=== PATIENT | female | born 1940 | race Caucasian/White ===

== ENCOUNTER → 2016-05-07 | Day surgery (SDC) | payer OTHER ==
[2016-04-26 07:39] VITALS: BMI 25.0
[~2016-05-07] VITALS: Ht 165.1 cm; Wt 70.0 kg
[~2016-05-07] MED LIST: ATOR10TA88 PO; CALC500C70 PO; CHOL100010 PO; FENTANYL CITRATE INJ 50 MCG/1 ML 2 ML VIAL ONE; GLUCTAB7 PO; LIDOCAINE HCL 2% 2 ML VIAL (20MG/ML) ONE; MULT-506 PO; NAPR1TAB9 PO; OMEGCAP2 PO; PROPOFOL IV EMULSION 10 MG/ML 20 ML VIAL IV ONE; SODIUM CHLORIDE 0.9% 500ML 500 ML IV ONE
[2016-05-07 11:27] VITALS: Ht 165.1 cm; Wt 70.0 kg
--- NOTE | 2016-05-07 12:04 | Endo History and Physical ---
History & Physical Date of Service: May 07, 2016. Chief Complaint: SCREENING 5 YEAR FOLLOW UP SISTER WITH COLON CA Referring Physician: DR ESPARZA History of Present Illness 75 yo CF who presents for colonoscopy secondary to family history of colon cancer (sister). Past Surgical History Hx Cardiac Surgery: No Hx Internal Defibrillator: No Hx Pacemaker: No Hx Abdominal Surgery: No Hx of Implantable Prosthesis: No Hx Post-Op Nausea and Vomiting: No Hx Cancer Surgery: No Hx Thoracic Surgery: No Hx Orthopedic: No Hx Urinary Tract Surgery: No Family History Colon CA Social History Smoking Status: Never Smoker Hx Substance Use: No Hx Alcohol Use: Yes (OCCASSIONALLY) Allergies Coded Allergies: NO KNOWN DRUG ALLERGIES (Verified Allergy, Unknown, ., 05/07/16) Current Medications Reported Home Medications Medications Dose Route/Sig Max Daily Dose Days Date Category Vitamin D (Cholecalciferol) 1,000 Unit Tab 1 Tab PO QAM 04/26/16 Reported Multivitamin (Multivitamins) Tab 1 Tab PO QAM 04/26/16 Reported Glucosamine Chondroitin (Xtkfqtqduij-Yszztgjuicp-Ani C-) 1 Tab Tab 1 Tab PO QAM 04/26/16 Reported Fish Oil ([place]-3 Fatty Acids) 1 Cap Cap 1 Cap PO QAM 04/26/16 Reported Os-Otilio 500 Plus D (Calcium/Vitamin D) Tab 1 Tab PO QAM 04/26/16 Reported Aleve (Naproxen) 220 Mg Tab 220 Mg PO QAM 04/26/16 Reported Lipitor (Atorvastatin Calcium) 10 Mg Tab 10 Mg PO HS 04/26/16 Reported Vital Signs Weight (Kilograms): 70.00 Height (Feet): 5 Height (Inches): 5 Date Time Temp Pulse Resp B/P Pulse Ox O2 Delivery O2 Flow Rate FiO2 05/07/16 11:35 36.5 77 20 109/58 98 Room Air Physical Exam General Appearance: WD/WN, no apparent distress Respiratory/Chest: Auscultation: breath sounds normal Cardiovascular: Heart Auscultation: RRR Abdomen: Bowel Sounds: normal Inspection & Palpation: soft, non-distended, no tenderness, guarding & rebound Assessment and Plan Assessment: 75 yo CF who presents for colonoscopy secondary to family history of colon cancer (sister). Plan: Proceed with colonoscopy.
--- NOTE | 2016-05-07 12:40 | Discharge Instructions ---
Endoscopy Patient Instructions Date / Procedure(s) Performed May 07, 2016. Colonoscopy Allergy Information Coded Allergies: NO KNOWN DRUG ALLERGIES (Verified Allergy, Unknown, ., 05/07/16) Discharge Date / Findings May 07, 2016. Colon polyps Diverticulosis Internal hemorrhoids Medication Instructions Stopped Medication(s): MARTÍN OK to resume all medications today as prescribed Reported Home Medications Medications Dose Route/Sig Max Daily Dose Days Date Category Vitamin D (Cholecalciferol) 1,000 Unit Tab 1 Tab PO QAM 04/26/16 Reported Multivitamin (Multivitamins) Tab 1 Tab PO QAM 04/26/16 Reported Glucosamine Chondroitin (Kqlbuwyreve-Lgfnthskqma-Tgw C-) 1 Tab Tab 1 Tab PO QAM 04/26/16 Reported Fish Oil ([place]-3 Fatty Acids) 1 Cap Cap 1 Cap PO QAM 04/26/16 Reported Os-Otilio 500 Plus D (Calcium/Vitamin D) Tab 1 Tab PO QAM 04/26/16 Reported Aleve (Naproxen) 220 Mg Tab 220 Mg PO QAM 04/26/16 Reported Lipitor (Atorvastatin Calcium) 10 Mg Tab 10 Mg PO HS 04/26/16 Reported Provider Instructions Activity Restrictions - No exercising or heavy lifting for 24 hours. - Do not drink alcohol the day of the procedure. - Do not drive a car or operate machinery until the day after the procedure. - Do not make any important decisions or sign important papers in 24 hours after the procedure. Following Day: - Return to full activity which may include returning to work/school. Diet Start your diet with liquids and light foods (jello, soup, juice, toast). Then eat your usual diet if not nauseated. Treatment For Common After Affects For mild abdominal pain, bloating, or excessive gas: - Rest - Eat lightly - Lie on right side Follow-Up Information Follow-up with DR ESPARZA as scheduled Anesthesia Information What You Should Know You have had a procedure that required some medicine to reduce anxiety and discomfort. This treatment is called moderate sedation. After receiving the treatment, you may be sleepy, but you will be able to breathe on your own. The effects of the treatment may last for several hours. Follow these instructions along with Activity/Diet recommendations noted above: * Do NOT do anything where dizziness or clumsiness would be dangerous. * Rest quietly at home today, then you can be up and about tomorrow. * Have a responsible person stay with you the rest of today. * You may have had an I.V. today. If so, you may take the dressing off later today. Recommendations Call your doctor if: * Trouble breathing * Continuous vomiting for more than 24 hours * Temperature above 101 degrees * Severe abdominal pain or bloating * Pain not relieved by pain medicine ordered * There is increased drainage or redness from any incision * A large amount of rectal bleeding greater than 2-3 tablespoons. (If you had a polyp/s removed or have hemorrhoids, a small amount of blood - from the rectum is to be expected.) * You have any unanswered questions or concerns. IN THE EVENT OF A SERIOUS EMERGENCY, GO TO THE NEAREST EMERGENCY ROOM Your discharge instructions were prepared by provider Kvng Blanco. Patient Instructions Signature Page Catarina Quintana Patient (or Guardian) Signature/Date: I have read and understand the instructions given to me by my caregivers. Caregiver/RN/Doctor Signature/Date: The above-named patient and/or guardian has received patient instructions on this date. + Original Patient Signature Page (only) stays with chart. Please make copy for patient.
--- NOTE | 2016-05-07 12:40 | GI REPORT ---
Procedure Date: 05/07/2016 11:58 AM Procedure: Colonoscopy Indications: Family history of colon cancer in a first-degree relative Medicines: Monitored Anesthesia Care Complications: No immediate complications. Estimated Blood Loss: Estimated blood loss: none. Procedure: Pre-Anesthesia Assessment: - Prior to the procedure, a History and Physical was performed, and patient medications and allergies were reviewed. The patient's tolerance of previous anesthesia was also reviewed. The risks and benefits of the procedure and the sedation options and risks were discussed with the patient. All questions were answered, and informed consent was obtained. Prior Anticoagulants: The patient has taken no previous anticoagulant or antiplatelet agents. ASA Grade Assessment: II - A patient with mild systemic disease. After reviewing the risks and benefits, the patient was deemed in satisfactory condition to undergo the procedure. After I obtained informed consent, the scope was passed under direct vision. Throughout the procedure, the patient's blood pressure, pulse, and oxygen saturations were monitored continuously. The scope was introduced through the anus and advanced to the cecum, identified by appendiceal orifice and ileocecal valve. The colonoscopy was performed without difficulty. The patient tolerated the procedure well. The quality of the bowel preparation was good. The ileocecal valve, appendiceal orifice, and rectum were photographed. Findings: Two sessile polyps were found in the descending colon. The polyps were 4 to 5 mm in size. These polyps were removed with a hot snare. Resection and retrieval were complete. Multiple small-mouthed diverticula were found in the sigmoid colon. Non-bleeding internal hemorrhoids were found during retroflexion. The hemorrhoids were small. Impression: - Two 4 to 5 mm polyps in the descending colon, removed with a hot snare. Resected and retrieved. - Diverticulosis in the sigmoid colon. - Non-bleeding internal hemorrhoids. Recommendation: - Resume previous diet. - Continue present medications. - Repeat colonoscopy for surveillance based on pathology results. - Return to primary care physician as previously scheduled. Kvng Blanco, DO 05/07/2016 12:39:46 PM This report has been signed electronically. Note Initiated On: 05/07/2016 11:58 AM
--- NOTE | 2016-05-07 13:09 | Anesthesiology Progress Note ---
Anesthesia Post Op Note Date & Time May 07, 2016 at 13:10 Vital Signs Pain Intensity: 0 Vital Signs Past 12 Hours Date Time Temp Pulse Resp B/P Pulse Ox O2 Delivery O2 Flow Rate FiO2 05/07/16 12:40 71 20 92/54 96 Room Air 05/07/16 11:35 36.5 77 20 109/58 98 Room Air Notes Mental Status: alert / awake / arousable, participated in evaluation Pt Amnestic to Procedure: Yes Nausea / Vomiting: adequately controlled Pain: adequately controlled Airway Patency, RR, SpO2: stable & adequate BP & HR: stable & adequate Hydration State: stable & adequate Anesthetic Complications: no major complications apparent
[2016-05-07 13:11] VITALS: BP 97/58; PULSE 62; O2SAT 96
== END | disposition home or self-care (01) ==
LOC: C.GI 10:26
PROVIDERS: ATTEND Internal Medicine
DX: Z12.11 Encounter for screening for malignant neoplasm of colon (principal); D12.4 Benign neoplasm of descending colon; K57.30 Diverticulosis of large intestine without perforation or abscess without bleeding; K64.8 Other hemorrhoids; G47.33 Obstructive sleep apnea (adult) (pediatric); M19.90 Unspecified osteoarthritis, unspecified site; Z68.26 Body mass index [BMI] 26.0-26.9, adult; Z80.0 Family history of malignant neoplasm of digestive organs

== ENCOUNTER → 2016-07-30 | Outpatient (CLI) | payer OTHER ==
[~2016-07-30] MED LIST changes: +ATOR10TA82 PO; -ATOR10TA88 PO; -FENTANYL CITRATE INJ 50 MCG/1 ML 2 ML VIAL ONE; -LIDOCAINE HCL 2% 2 ML VIAL (20MG/ML) ONE; -PROPOFOL IV EMULSION 10 MG/ML 20 ML VIAL IV ONE; -SODIUM CHLORIDE 0.9% 500ML 500 ML IV ONE
[2016-07-30 11:30] LABS: CHOLESTEROL/HDL RATIO 2.2; THYROID STIMULATING HORMONE 2.41 uIu/ml (0.300-4.500)
[2016-07-30 14:02] LABS: ESTIMATED AVERAGE GLUCOSE 123 mg/dl; HA1C FLAG Normal (Normal)
== END | disposition home or self-care (01) ==
LOC: C.LABBC 07:08
PROVIDERS: ATTEND Internal Medicine
DX: M81.0 Age-related osteoporosis without current pathological fracture (principal); E78.5 Hyperlipidemia, unspecified; E55.9 Vitamin D deficiency, unspecified; R73.9 Hyperglycemia, unspecified

== ENCOUNTER → 2016-09-10 | Outpatient (CLI) | payer OTHER | END | disposition home or self-care (01) | LOC: C.MAMM 09:16 | PROVIDERS: ATTEND Internal Medicine | DX: M81.0 Age-related osteoporosis without current pathological fracture (principal) ==

== ENCOUNTER → 2016-10-21 | Outpatient (CLI) | payer OTHER ==
[~2016-10-21] VITALS: Ht 165.1 cm; Wt 68.1 kg
[~2016-10-21] MED LIST changes: -ATOR10TA82 PO; +ATOR10TA88 PO
[2016-10-21 14:43] VITALS: BP 112/68; PULSE 76; Ht 165.1 cm; Wt 68.1 kg
== END | disposition home or self-care (01) ==
LOC: C.NEUR 13:45
PROVIDERS: ATTEND Physician Assistant
DX: G47.33 Obstructive sleep apnea (adult) (pediatric) (principal)

== ENCOUNTER → 2016-12-06 | Outpatient (CLI) | payer OTHER ==
--- NOTE | 2016-12-06 15:34 | MAMMOGRAPHY REPORT ---
BILATERAL DIGITAL SCREENING MAMMOGRAM WITH CAD: 12/06/2016 CLINICAL HISTORY: Routine screening. Patient has no complaints. TECHNIQUE: Current study was also evaluated with a Computer Aided Detection (CAD) system. Bilateral CC and MLO views were obtained. COMPARISON: Comparison is made to exams dated: 12/04/2015 mammogram, 11/28/2014 mammogram, 11/26/2013 m ammogram, 11/25/2012 mammogram, 11/25/2011 mammogram, and 07/29/2001 mammogram - [facility] enter. BREAST COMPOSITION: There are scattered areas of fibroglandular density in both breasts. FINDINGS: No suspicious masses, calcifications, or areas of architectural distortion are noted in ei ther breast. There has been no significant interval change compared to prior exams. IMPRESSION: ACR BI-RADS CATEGORY 2: BENIGN There is no mammographic evidence of malignancy. A 1 year screening mammogram is recommended. The pa tient will receive written notification of the results. Approximately 10% of breast cancers are not detected with mammography. A negative mammographic report should not delay biopsy if a clinically suggestive mass is present. Milana Nguyen M.D. ah/:12/06/2016 13:42:03 Loan Supervisor: Sarahy CELESTE(Bria)(Rosibel), [facility] letter sent: Normal 1/2 BI-RADS Code: ACR BI-RADS Category 2: Benign
== END | disposition home or self-care (01) ==
LOC: C.MAMM 13:07
PROVIDERS: ATTEND Internal Medicine
DX: Z12.31 Encounter for screening mammogram for malignant neoplasm of breast (principal)

== ENCOUNTER → 2017-01-31 | Outpatient (CLI) | payer OTHER ==
[~2017-01-31] MED LIST changes: +ATOR10TA82 PO; -ATOR10TA88 PO
[2017-01-31 11:22] LABS: BLOOD UREA NITROGEN 21 mg/dl (7-18); BUN/CREATININE RATIO 25.4 (10-20); CALCIUM 9.1 mg/dl (8.5-10.1); CARBON DIOXIDE 26 mmol/L (21-32); CHLORIDE 106 mmol/L (98-107); CHOLESTEROL 185 mg/dl (0-200); CREATININE 0.81 mg/dl (0.60-1.20); GLUCOSE 103 mg/dl (70-99); POTASSIUM 3.9 mmol/L (3.5-5.1); SODIUM 138 mmol/L (136-145); TRIGLYCERIDES 44 mg/dl (0-150); VERY LOW DENSITY LIPOPROT CALC 9 mg/dl
[2017-01-31 11:24] LABS: CHOLESTEROL/HDL RATIO 2.1; HDL CHOLESTEROL 90 mg/dl; LDL CHOLESTEROL CALCULATED 86 mg/dl
[2017-01-31 11:26] LABS: ESTIMATED AVERAGE GLUCOSE 120 mg/dl; HA1C FLAG Normal (Normal)
== END | disposition home or self-care (01) ==
LOC: C.LABBC 07:23
PROVIDERS: ATTEND Internal Medicine
DX: E78.5 Hyperlipidemia, unspecified (principal); R73.9 Hyperglycemia, unspecified

== ENCOUNTER → 2017-05-08 | Outpatient (CLI) | payer OTHER ==
[~2017-05-08] VITALS: Ht 165.1 cm; Wt 68.3 kg
[2017-05-08 16:03] VITALS: BP 123/81; PULSE 85; Ht 165.1 cm; Wt 68.3 kg
== END | disposition home or self-care (01) ==
LOC: C.NEUR 15:26
PROVIDERS: ATTEND Physician Assistant
DX: G47.33 Obstructive sleep apnea (adult) (pediatric) (principal)

== ENCOUNTER → 2017-08-04 | Outpatient (CLI) | payer OTHER ==
[2017-08-04 11:40] LABS: ALT/SGPT 20 U/L (12-78); AST/SGOT 16 U/L (15-37); BLOOD UREA NITROGEN 16 mg/dl (7-18); CALCIUM 8.9 mg/dl (8.5-10.1); CARBON DIOXIDE 29 mmol/L (21-32); CREATININE 0.85 mg/dl (0.60-1.20); GLUCOSE 98 mg/dl (70-99); POTASSIUM 3.8 mmol/L (3.5-5.1); SODIUM 137 mmol/L (136-145)
[2017-08-04 11:43] LABS: CHOLESTEROL 193 mg/dl (0-200); LDL CHOLESTEROL CALCULATED 92 mg/dl
[2017-08-04 11:47] LABS: HEMOGLOBIN A1C 5.9 % (4.5-5.6)
== END | disposition home or self-care (01) ==
LOC: C.LABBC 07:25
PROVIDERS: ATTEND Internal Medicine
DX: E78.5 Hyperlipidemia, unspecified (principal); R73.9 Hyperglycemia, unspecified; E55.9 Vitamin D deficiency, unspecified

== ENCOUNTER → 2017-11-13 | Outpatient (CLI) | payer OTHER ==
[~2017-11-13] VITALS: Ht 165.1 cm; Wt 68.5 kg
[2017-11-13 14:16] VITALS: BP 102/53; PULSE 79; Ht 165.1 cm; Wt 68.5 kg
== END | disposition home or self-care (01) ==
LOC: C.NEUR 13:48
PROVIDERS: ATTEND Physician Assistant
DX: G47.33 Obstructive sleep apnea (adult) (pediatric) (principal)

== ENCOUNTER 2024-06-09 03:26 | Observation (INO) ==
--- NOTE | 2024-06-09 03:44 | Emergency Department Note ---
Impression & Plan Heart palpitations ED Provider Note HISTORY OF PRESENT ILLNESS: Patient is an 83-year-old female presenting with palpitations. Patient reports that she awoke from sleep to go to the bathroom, and on her way back to bed felt like her heart was pounding at 2 AM. Patient reports that she laid in bed for about 30 minutes and the symptoms persisted, prompting her to wake up her to present to the emergency department. She states that this is her third episode of similar symptoms. The previously time she had been in SVT. She denies any recent changes in medications. She denies any chest pain or shortness of breath. She reports that during her previous episodes of SVT, she did not realize that she was in it. She reports the palpitations are "fluttering in my chest." She denies any recent fevers. Denies any abdominal pain, nausea or vomiting. ROS: as above PHYSICAL EXAM: Constitutional: Patient appears in no acute distress. HENT: Head: Normocephalic and atraumatic. Eyes: EOMI, PERRL Mouth/Throat: Mucous membranes moist. Neck: Trachea midline. Neck supple. Cardiovascular: RRR, No murmurs, rubs or gallops. Intact distal pulses. Pulmonary/Chest: No respiratory distress. Breath sounds clear and equal bilaterally. No wheezes or rales. Abdominal: Abdomen soft, no tenderness, rebound or guarding. Musculoskeletal: No edema, tenderness or deformity noted. Skin: Warm and dry. No rash, erythema, pallor or cyanosis Psychiatric: Appropriate mood and affect for situation. Neurological: Alert and keenly responsive. CN II-XII grossly intact, moving all extremities equally and fully. MDM: - Vitals signs stable. - History obtained via patient. History as above. - Chronic conditions affecting care: paroxysmal SVT; CLL - Differential diagnoses include, but are not limited to: ACS; dysrhythmia; electrolyte abnormality; PE; pulmonary embolism - Order placed for continuous cardiac monitoring. At this time, monitor showed rate of 100 bpm with normal sinus rhythm, per my interpretation. - External medical records reviewed. Cardiology office visit note dated 06/02/2024 was reviewed. Patient was seen for paroxysmal SVT. She was set up with a monitor and was continued on Lopressor 25 mg twice daily. Plan for 1 month follow-up with cardiology. - EKG image interpreted by myself showed normal sinus rhythm. Rate 93 bpm. QT 370. No acute ischemic changes. Noted to have a right bundle branch block, which has been noted on previous EKGs. EKG appears similar to EKG from 05/16/2024. - Laboratory workup interpreted by myself showed elevated WBC (41.07 - pt has hx of CLL); normal PT/INR; stable electrolytes; normal lipase; normal troponin - CXR image reviewed by myself is negative for pneumonia, per my interpretation. - Given patient's symptomatic palpitations and recurrent visits to the emergency department for her paroxysmal SVT, will admit to hospitalist service for further cardiac workup. Patient has not noted be in SVT at this time. She is not complaining of any chest pain. - Discussion was had with caseworker protective services about patient's case and need for admission - Hospitalist consulted for admission - Patient admitted to [facility] hospitalist service for further evaluation and management. ASSESSMENT AND PLAN: Diagnosis: heart palpitations Plan: Admit Past Med/Surg History Problem List (Updated 06/09/24 @ 05:13 by Shawnee Arita MD) Heart palpitations (Acute) PSVT (paroxysmal supraventricular tachycardia) Neurocognitive disorder Wears hearing aid in both ears Phonak Audeo L50R disp 08/06/22 Cerumen impaction Sensorineural hearing loss (SNHL) of both ears Perceived hearing changes Osteoporosis (Acute) Hyperglycemia (Acute) Carotid artery plaque (Acute) CLL (chronic lymphocytic leukemia) (Acute) Encounter for pre-operative examination Encounter for pre-operative examination Hyperlipidemia (Acute) Insomnia (Acute) Obstructive sleep apnea (Acute) CPAP Osteoarthritis of knee (Acute) Vitamin D deficiency (Acute) Medical History Subjective memory complaints Surgical History Hx of cataract extraction Family History Sister Colorectal cancer Brother Liver cancer Denies family history of Ovarian cancer Prostate cancer Myocardial infarction Breast cancer Social History Smoking Status: Never smoker Second Hand Exposure: No; Do You Dip or Chew Tobacco: No; Hx Alcohol Use: Yes Alcohol type: wine Hx Substance Use: No Preferred Language: German Communication Ability: Effective Visual Impairment: No Limitations Hearing Ability: Normal [employer]ators Supervisor Required: No Beliefs That Will Affect Care: None marital status: Current Living Situation: Spouse current occupational status: retired 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 Verified 06/02/24 14:03 Home Meds Home Medications Medication Instructions Recorded Confirmed cholecalciferol (vitamin D3) 25 2,000 units PO QAM 12/28/18 06/02/24 mcg (1,000 unit) capsule multivitamin 1 tab PO QAM 12/28/18 06/02/24 Previous Rx's Medication Instructions Recorded CPAP Machine #1 ea 01/15/23 atorvastatin 10 mg tablet 10 mg PO HS #90 tabs 07/10/23 memantine 10 mg tablet 10 mg PO DAILY #90 tabs 09/03/23 metoprolol tartrate 25 mg tablet 25 mg PO BID #60 tabs 05/16/24 Results & Data (ED) Vital Signs Vital Signs - 24 hr 06/09/24 03:26 06/09/24 03:29 06/09/24 03:47 Temperature 36.6 C Temperature Source Oral Pulse Rate 95 H 100 H Respiratory Rate 18 Respiratory Effort / Characteristics Non-Labored Spontaneous Respiratory Depth Normal Respiratory Pattern Regular Blood Pressure 126/84 Blood Pressure Mean 98 Pulse Oximetry 97 95 Oxygen Delivery Method Room Air Room Air Sepsis Recent Fever Within 48 Hours No Sepsis New/Unexplained Change in Mental Status No Sepsis Action Taken by Nursing No Action Required 06/09/24 03:59 Temperature Temperature Source Pulse Rate Respiratory Rate Respiratory Effort / Characteristics Respiratory Depth Respiratory Pattern Blood Pressure Blood Pressure Mean Pulse Oximetry 97 Oxygen Delivery Method Room Air Sepsis Recent Fever Within 48 Hours Sepsis New/Unexplained Change in Mental Status Sepsis Action Taken by Nursing Laboratory Data 06/09/24 03:55 06/09/24 03:55 Lab Results 06/09/24 Range/Units 03:55 WBC 41.07 H* (4.8-10.8) K/ul RBC 4.12 L (4.20-5.40) M/uL Hgb 12.3 (12.0-16.0) g/dl Hct 38.1 (37.0-47.0) % MCV 92.5 (80.0-100.0) fL MCH 29.9 (25.0-34.0) pg MCHC 32.3 (32.0-36.0) g/dL RDW Std Deviation 46.6 H (36.4-46.3) fL RDW Coeff of Stephan 13.7 (11.5-14.5) % Plt Count 179 (130-400) K/uL MPV 10.5 (9.4-12.4) fL PT 10.3 (9.0-12.0) Seconds INR 0.9 (0.9-1.1) Sodium 139 (136-145) mmol/L Potassium 4.4 (3.5-5.1) mmol/L Chloride 104 (98-107) mmol/L Carbon Dioxide 31 (21-32) mmol/L Anion Gap 4 (3-11) BUN 16 (6-23) mg/dl Creatinine 0.85 (0.6-1.2) mg/dl Est Cr Clr Drug Dosing 44.3 ml/min eGFR 67.51 BUN/Creatinine Ratio 18.8 (10-20) Glucose 103 H (70-99(Fasting)) mg/dl Calcium 9.4 (8.6-10.3) mg/dl Magnesium 2.2 (1.7-2.4) mg/dl Total Bilirubin 0.4 (0.2-1.0) mg/dl AST 20 (13-39) U/L ALT 9 (7-52) U/L Alkaline Phosphatase 71 (34-104) U/L Troponin I High Sens 3.8 (0-14) pg/ml Total Protein 6.5 (6.0-8.3) gm/dl Albumin 4.1 (3.4-5.0) gm/dl Globulin 2.4 L (2.5-4.0) gm/dl Albumin/Globulin Ratio 1.7 (0.9-2) Lipase 31 (11-82) U/L Imaging Data Radiologist's Impression: Chest X-Ray 06/09/24 03:34 EXAM: XR chest 1V portable CLINICAL HISTORY: Chest pain, nonspecific TECHNIQUE: An X-ray image of the chest is obtained in AP projection. COMPARISON: 05/16/2024 CR FINDINGS: Pulmonary Parenchyma: Still seen bilateral prominent bronchovascular markings likely congestive and diffuse interstitial thickening. No evidence of consolidation, collapse, or focal opacities. No pulmonary nodules are identified. No evidence of pleural effusion or pleural thickening. Interval removal of intra thoracic device. Heart and Mediastinum: Heart size and shape are normal. No mediastinal widening or masses. No hilar or mediastinal lymphadenopathy. Unfolded thoracic aorta. Bony Thorax: Bony thorax appears intact without fractures or deformities. Soft Tissues: Soft tissues overlying the chest wall are unremarkable. Bilateral AC and glenohumeral osteoarthritis. IMPRESSION: 1. Still seen bilateral prominent bronchovascular markings likely congestive and diffuse interstitial thickening. Clinical correlation is advised. 2. No acute cardiopulmonary abnormalities are identified. Electronically signed by Masha Schmidt 06-09-2024 04:41 AM Discharge Plan Visit Data Chief Complaint: Cardiac Assessment Stated Complaint: HEART STARTED TO POUND,FAST,DOESN'T FEEL RIGHT ED Provider: Shawnee Arita Discharge Problem: Heart palpitations Forms Stand Alone Forms: [facility] Interactive Prescriptions Prescriptions: No Action atorvastatin 10 mg tablet 10 mg PO HS Qty: 90 3RF memantine 10 mg tablet 10 mg PO DAILY Qty: 90 1RF multivitamin tablet 1 tab PO QAM Rx Instructions: Unable to verify OTC meds at this date/time. cholecalciferol (vitamin D3) 1,000 unit capsule 2,000 units PO QAM Rx Instructions: Unable to verify OTC meds at this date/time. (DME) CPAP Machine Misc See Rx Instructions .MEDSUPPLY Qty: 1 0RF Rx Instructions: CPAP 9 cm of water, current machine nonfunctional. Mask, tubing, filters, and supplies for lifetime need. T&B MEDICAL metoprolol tartrate 25 mg tablet 25 mg PO BID Qty: 60 0RF Referrals Referrals: ProHenok MD [Primary Care Provider] -
--- NOTE | 2024-06-09 04:41 | XRay Report ---
EXAM: XR chest 1V portable CLINICAL HISTORY: Chest pain, nonspecific TECHNIQUE: An X-ray image of the chest is obtained in AP projection. COMPARISON: 05/16/2024 CR FINDINGS: Pulmonary Parenchyma: Still seen bilateral prominent bronchovascular markings likely congestive and diffuse interstitial thickening. No evidence of consolidation, collapse, or focal opacities. No pulmonary nodules are identified. No evidence of pleural effusion or pleural thickening. Interval removal of intra thoracic device. Heart and Mediastinum: Heart size and shape are normal. No mediastinal widening or masses. No hilar or mediastinal lymphadenopathy. Unfolded thoracic aorta. Bony Thorax: Bony thorax appears intact without fractures or deformities. Soft Tissues: Soft tissues overlying the chest wall are unremarkable. Bilateral AC and glenohumeral osteoarthritis. IMPRESSION: 1. Still seen bilateral prominent bronchovascular markings likely congestive and diffuse interstitial thickening. Clinical correlation is advised. 2. No acute cardiopulmonary abnormalities are identified. Electronically signed by Masha Schmidt 06-09-2024 04:41 AM
[2024-06-09 04:46] LABS: Hematocrit (blood only) 38.1 % (37.0-47.0); Hemoglobin 12.3 g/dl (12.0-16.0); Mean Corpuscular Hemoglobin 29.9 pg (25.0-34.0); Mean Corpuscular Hgb Conc 32.3 g/dL (32.0-36.0); Mean Corpuscular Volume 92.5 fL (80.0-100.0); Mean Platelet Volume 10.5 fL (9.4-12.4); Platelet Count 179 K/uL (130-400); RDW Coefficient of Variation 13.7 % (11.5-14.5); RDW Standard Deviation 46.6 fL (36.4-46.3); Red Blood Count 4.12 M/uL (4.20-5.40); White Blood Count 41.07 K/ul (4.8-10.8)
[2024-06-09 04:52] LABS: Albumin Level 4.1 gm/dl (3.4-5.0); Bilirubin,Total 0.4 mg/dl (0.2-1.0); Calcium 9.4 mg/dl (8.6-10.3); Magnesium 2.2 mg/dl (1.7-2.4); Potassium 4.4 mmol/L (3.5-5.1)
[2024-06-09 04:58] LABS: Albumin Globulin Ratio 1.7 (0.9-2); BUN Creatinine Ratio 18.8 (10-20); Creatinine Clr Calc Pharmacy 44.3 ml/min; Globulin 2.4 gm/dl (2.5-4.0); Total Protein 6.5 gm/dl (6.0-8.3)
[2024-06-09 04:59] LABS: INR 0.9 (0.9-1.1); Prothrombin Time 10.3 Seconds (9.0-12.0)
[2024-06-09 05:11] LABS: Troponin I High Sensitivity 3.8 pg/ml (0-14)
--- NOTE | 2024-06-09 05:27 | History & Physical Report ---
Date of Service June 09, 2024 Assessment & Plan (1) Heart palpitations: (2) Hyperlipidemia: (3) Obstructive sleep apnea: Plan 83yo female with history of PSVT presenting with palpitations. #Palpitations - no arrhythmia noted on monitor. Patient has been following with Cardiology for this issue, she is to see them in a week for a continuous monitor. 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 No bands. Denies infectious symptoms. Follows with Oncology -Monitor F/E/N - Saline lock, electrolytes WNL, Heart healthy diet as tolerated Ppx - Low risk, encourage ambulation Code - Full per discussion with patient Dispo - Observation to medical with telemetry History of Present Illness Chief Complaint: palpitations Primary Care Provider: Henok Garcias MD Catarina Quintana is an 83yo female with history of CLL on surveillance, HLP, ANABELLE on CPAP and recently diagnosed SVT presenting with palpitations. Patient went to the bathroom tonight around 02:00. When she returned to bed she felt palpitations. She occasionally gets palpitations but reports that they were stronger tonight and felt different than before. She denies chest pain, SOB, dizziness, syncope. No additional complaints at this time. In the ER she is afebrile, HD stable Allergies Allergy/AdvReac Type Severity Reaction Status Date / Time No Known Drug Allergies Allergy Unknown . Verified 06/02/24 14:03 Home Medications Medication Instructions Recorded Confirmed Type cholecalciferol (vitamin D3) 25 2,000 units PO QAM 12/28/18 06/02/24 History mcg (1,000 unit) capsule multivitamin 1 tab PO QAM 12/28/18 06/02/24 History CPAP Machine #1 ea 01/15/23 06/02/24 Rx atorvastatin 10 mg tablet 10 mg PO HS #90 tabs 07/10/23 06/02/24 Rx memantine 10 mg tablet 10 mg PO DAILY #90 tabs 09/03/23 06/02/24 Rx metoprolol tartrate 25 mg tablet 25 mg PO BID #60 tabs 05/16/24 06/02/24 Rx Past Med/Surg History Problem List Heart palpitations (Acute) PSVT (paroxysmal supraventricular tachycardia) Neurocognitive disorder Wears hearing aid in both ears Phonak Audeo L50R disp 08/06/22 Cerumen impaction Sensorineural hearing loss (SNHL) of both ears Perceived hearing changes Osteoporosis (Acute) Hyperglycemia (Acute) Carotid artery plaque (Acute) CLL (chronic lymphocytic leukemia) (Acute) Encounter for pre-operative examination Encounter for pre-operative examination Hyperlipidemia (Acute) Insomnia (Acute) Obstructive sleep apnea (Acute) CPAP Osteoarthritis of knee (Acute) Vitamin D deficiency (Acute) Medical History Subjective memory complaints Surgical History Hx of cataract extraction Lt. Family History Sister Colorectal cancer Brother Liver cancer Denies family history of Ovarian cancer Prostate cancer Myocardial infarction Breast cancer Social History Smoking Status: Never smoker Second Hand Exposure: No; Do You Dip or Chew Tobacco: No; Hx Alcohol Use: Yes Alcohol type: wine Hx Substance Use: No Preferred Language: Luxembourgish Communication Ability: Effective Visual Impairment: No Limitations Hearing Ability: Normal Staff Pharmacist Hospital Required: No Beliefs That Will Affect Care: None marital status: Current Living Situation: Spouse current occupational status: retired 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 Feels Safe at Home: Yes Childhood Exposure to Second-Hand Smoke: No Dental Care, Regularly: Yes Physical Activity Frequency: Daily Seatbelt Use: always Sunscreen Use: Yes Assistive Devices: CPAP Review of Systems Review of Systems: All systems reviewed & are unremarkable except as noted in HPI & below Physical Exam Physical Exam: General: patient resting comfortably, NAD, non-toxic in appearance, AA&O x 4 Skin: warm, dry, intact, no rashes or lesions HEENT: NC/AT, PERRL, EOMI, anicteric sclera, conjunctiva without injection, e xternal ear normal to inspection and nontender, nares patent, moist mucus membranes, dentition intact, no oropharyngeal lesions, neck supple, trachea midline, no LAD, no thyromegaly, no JVD Heart: +S1/S2, regular, no m/r/g Lungs: equal air entry bilaterally, no rales/rhonchi/wheezes Abd: +BS, soft, NT/ND, no masses/organomegaly/ascites Ext: warm, 2+ pulses in UE/LE bilaterally, no clubbing/cyanosis or edema Neuro: nonfocal, patient AA&O x 4, speech intact, no facial droop, moving all extremities on command with equal strength 5/5 Results & Data Results & Data Vital Signs (Past 12 Hours) Vital Signs Temp Pulse Resp BP Pulse Ox O2 Del Method 06/09/24 03:59 97 Room Air 06/09/24 03:47 100 H 06/09/24 03:29 36.6 C 95 H 18 126/84 95 Room Air 06/09/24 03:26 97 Room Air Laboratory Results Laboratory Results WBC 41.07 K/ul (4.8-10.8) H* 06/09/24 03:55 RBC 4.12 M/uL (4.20-5.40) L 06/09/24 03:55 Hgb 12.3 g/dl (12.0-16.0) 06/09/24 03:55 Hct 38.1 % (37.0-47.0) 06/09/24 03:55 MCV 92.5 fL (80.0-100.0) 06/09/24 03:55 MCH 29.9 pg (25.0-34.0) 06/09/24 03:55 MCHC 32.3 g/dL (32.0-36.0) 06/09/24 03:55 RDW Std Deviation 46.6 fL (36.4-46.3) H 06/09/24 03:55 RDW Coeff of Stephan 13.7 % (11.5-14.5) 06/09/24 03:55 Plt Count 179 K/uL (130-400) 06/09/24 03:55 MPV 10.5 fL (9.4-12.4) 06/09/24 03:55 Immature Gran % (Auto) 0.1 % 06/09/24 03:55 Neut % (Auto) 7.4 % 06/09/24 03:55 Lymph % (Auto) 90.0 % 06/09/24 03:55 [place] % (Auto) 1.4 % 06/09/24 03:55 Eos % (Auto) 0.8 % 06/09/24 03:55 Baso % (Auto) 0.3 % 06/09/24 03:55 Neut # (Auto) 3.03 K/uL (1.40-6.50) 06/09/24 03:55 Lymph # (Auto) 36.98 K/uL (1.20-3.40) H 06/09/24 03:55 [place] # (Auto) 0.57 K/uL (0.11-0.59) 06/09/24 03:55 Eos # (Auto) 0.33 K/uL (0.00-0.50) 06/09/24 03:55 Baso # (Auto) 0.11 K/uL (0.00-0.20) 06/09/24 03:55 Immature Gran # (Auto) 0.05 K/uL (0.01-0.20) 06/09/24 03:55 Smudge Cells Present 06/09/24 03:55 PT 10.3 Seconds (9.0-12.0) 06/09/24 03:55 INR 0.9 (0.9-1.1) 06/09/24 03:55 Sodium 139 mmol/L (136-145) 06/09/24 03:55 Potassium 4.4 mmol/L (3.5-5.1) 06/09/24 03:55 Chloride 104 mmol/L (98-107) 06/09/24 03:55 Carbon Dioxide 31 mmol/L (21-32) 06/09/24 03:55 Anion Gap 4 (3-11) 06/09/24 03:55 BUN 16 mg/dl (6-23) 06/09/24 03:55 Creatinine 0.85 mg/dl (0.6-1.2) 06/09/24 03:55 Est Cr Clr Drug Dosing 44.3 ml/min 06/09/24 03:55 eGFR 67.51 06/09/24 03:55 BUN/Creatinine Ratio 18.8 (10-20) 06/09/24 03:55 Glucose 103 mg/dl (70-99(Fasting)) H 06/09/24 03:55 Calcium 9.4 mg/dl (8.6-10.3) 06/09/24 03:55 Magnesium 2.2 mg/dl (1.7-2.4) 06/09/24 03:55 Total Bilirubin 0.4 mg/dl (0.2-1.0) 06/09/24 03:55 AST 20 U/L (13-39) 06/09/24 03:55 ALT 9 U/L (7-52) 06/09/24 03:55 Alkaline Phosphatase 71 U/L (34-104) 06/09/24 03:55 Troponin I High Sens 3.8 pg/ml (0-14) 06/09/24 03:55 B-Natriuretic Peptide 176 pg/ml (0-100) H 06/09/24 04:53 Total Protein 6.5 gm/dl (6.0-8.3) 06/09/24 03:55 Albumin 4.1 gm/dl (3.4-5.0) 06/09/24 03:55 Globulin 2.4 gm/dl (2.5-4.0) L 06/09/24 03:55 Albumin/Globulin Ratio 1.7 (0.9-2) 06/09/24 03:55 Lipase 31 U/L (11-82) 06/09/24 03:55 Impressions Chest X-Ray 06/09/24 03:34 EXAM: XR chest 1V portable CLINICAL HISTORY: Chest pain, nonspecific TECHNIQUE: An X-ray image of the chest is obtained in AP projection. COMPARISON: 05/16/2024 CR FINDINGS: Pulmonary Parenchyma: Still seen bilateral prominent bronchovascular markings likely congestive and diffuse interstitial thickening. No evidence of consolidation, collapse, or focal opacities. No pulmonary nodules are identified. No evidence of pleural effusion or pleural thickening. Interval removal of intra thoracic device. Heart and Mediastinum: Heart size and shape are normal. No mediastinal widening or masses. No hilar or mediastinal lymphadenopathy. Unfolded thoracic aorta. Bony Thorax: Bony thorax appears intact without fractures or deformities. Soft Tissues: Soft tissues overlying the chest wall are unremarkable. Bilateral AC and glenohumeral osteoarthritis. IMPRESSION: 1. Still seen bilateral prominent bronchovascular markings likely congestive and diffuse interstitial thickening. Clinical correlation is advised. 2. No acute cardiopulmonary abnormalities are identified. Electronically signed by Masha Schmidt 06-09-2024 04:41 AM PG Care Time/CCT Total # of Minutes Spent Total Time Spent with Patient: Total time spent is greater than 50% in coordination of care (as documented) at patient's floor/unit and/or counseling patient: Coding Level of Care Code 49098 INT INP/OBS CARE 3/75MIN Diagnoses Heart palpitations R00.2 Hyperlipidemia, unspecified hyperlipidemia type E78.5 Hyperlipidemia type: unspecified Obstructive sleep apnea G47.33 (2) Hyperlipidemia Hyperlipidemia type: unspecified Qualified Code(s): E78.5 - Hyperlipidemia, unspecified
[2024-06-09 05:42] LABS: Basophils # (auto) 0.11 K/uL (0.00-0.20); Basophils % (auto) 0.3 %; Eosinophils # (auto) 0.33 K/uL (0.00-0.50); Eosinophils % (auto) 0.8 %; Immature Granulocytes # (auto) 0.05 K/uL (0.01-0.20); Immature Granulocytes % (auto) 0.1 %; Lymphocytes # (auto) 36.98 K/uL (1.20-3.40); Monocytes # (auto) 0.57 K/uL (0.11-0.59); Monocytes % (auto) 1.4 %; Neutrophils # (auto) 3.03 K/uL (1.40-6.50); Neutrophils % (auto) 7.4 %; Smudge Cells Present
[2024-06-09] MEDS ORDERED: ONDANSETRON INJ 2 MG/ML 2 ML VIAL IV PRN (07:25)
[2024-06-09] MEDS ORDERED: ACETAMINOPHEN 325 MG TAB PO PRN (07:25)
[2024-06-09] MEDS: METOPROLOL TARTRATE 25 MG TAB PO SCH (08:18)
[2024-06-09] MEDS: MEMANTINE HCL 10 MG TAB PO SCH (08:18)
[2024-06-09] MEDS: METOPROLOL TARTRATE 25 MG TAB PO ONE (08:36)
[2024-06-09 09:45] LABS: T4 Free Thyroxine 0.91 ng/dl (0.61-1.60)
[2024-06-09 10:03] VITALS: RESP 18
--- NOTE | 2024-06-09 12:54 | Hospitalist Progress Note ---
Date of Service June 09, 2024 Assessment & Plan (1) Heart palpitations: Plan: Suspected PSVT on admission. Now resolved. Metoprolol dosage has been uptitrated. Thyroid profile is normal. (2) Hyperlipidemia: Plan: Stable. Continue statin therapy (3) CLL (chronic lymphocytic leukemia): Plan: Chronic leukocytosis as a result. Serial labs Plan Hopeful discharge to home tomorrowJune 10 Admission and Anticipated Discharge Date Admission Date: June 09, 2024 Subjective Alert and oriented. No complaints. Metoprolol has been uptitrated to 50 mg twice daily. Free T3 and free T4 levels are normal. EKG reveals a sinus rhythm with evidence of first-degree AV block and right bundle branch block. Continue telemetry. Hopefully she can go home tomorrowJune 10 Review of Systems 2 Review of Systems: Constitutionalno fever or chills ENTno blurred vision, no double vision, no epistaxis, no sore throat Respiratoryno cough, no wheezing, no shortness of breath Cardiac no chest pain, no syncope. Palpitations have resolved Svetlana nausea, vomiting, diarrhea, melena, hematochezia GUno urinary retention, no urinary incontinence, no dysuria, no hematuria Musculoskeletalno joint pain, no muscle tenderness Skinno bruising, no rashes, no pruritus Neurono isolated weakness, no paresthesia, no weakness Psychno depression, no anxiety Physical Exam 2 Physical Exam: General-alert and oriented x3, no fever, no chills HEENT-head atraumatic and normocephalic, pupils equal and reactive to light, extraocular muscles intact Neck-no lymphadenopathy or thyromegaly, trachea midline Chest-clear to auscultation. No rales, wheezing or rhonchi Cardiac-regular rate and rhythm, normal S1 and S2 Abdomen-normal bowel sounds, no hepatosplenomegaly Extremities-no cyanosis, clubbing, or edema Neuro-cranial nerves II through XII intact, motor and sensory function within normal limits, strength symmetrical, no focal deficits Psych-normal affect, normal mood Results & Data Results & Data Vital Signs (Past 12 Hours) Vital Signs Temp Pulse Pulse Resp BP BP Pulse Ox 06/09/24 12:00 93 H 18 109/78 94 06/09/24 10:00 70 18 97/62 L 94 06/09/24 08:19 06/09/24 08:00 91 H 17 112/69 94 06/09/24 07:35 92 H 06/09/24 06:39 92 H 19 94 06/09/24 06:37 106/79 06/09/24 06:27 92 H 14 94 06/09/24 06:03 78 21 93 06/09/24 05:54 79 17 93 06/09/24 05:45 75 18 98 06/09/24 05:36 103 H 17 95 06/09/24 05:21 98 H 17 94 06/09/24 05:20 112/67 06/09/24 05:15 98 H 23 93 06/09/24 05:06 96 H 17 93 06/09/24 04:45 94 H 20 94 06/09/24 04:24 100 H 21 93 06/09/24 04:15 98 H 15 93 06/09/24 04:00 92 H 20 97 06/09/24 03:59 97 06/09/24 03:57 99/71 L 06/09/24 03:47 100 H 06/09/24 03:29 36.6 C 95 H 18 126/84 95 06/09/24 03:26 97 O2 Del Method 06/09/24 12:00 Room Air 06/09/24 10:00 Room Air 06/09/24 08:19 Room Air 06/09/24 08:00 Room Air 06/09/24 07:35 06/09/24 06:39 Room Air 06/09/24 06:37 06/09/24 06:27 Room Air 06/09/24 06:03 06/09/24 05:54 06/09/24 05:45 06/09/24 05:36 06/09/24 05:21 06/09/24 05:20 06/09/24 05:15 06/09/24 05:06 06/09/24 04:45 06/09/24 04:24 06/09/24 04:15 06/09/24 04:00 06/09/24 03:59 Room Air 06/09/24 03:57 06/09/24 03:47 06/09/24 03:29 Room Air 06/09/24 03:26 Room Air Laboratory Results 06/09/24 03:55 06/09/24 03:55 PG Care Time/CCT Total # of Minutes Spent Total Time Spent with Patient: Total time spent is greater than 50% in coordination of care (as documented) at patient's floor/unit and/or counseling patient: Coding Level of Care Code 68183 SUB INP/OBS CARE 3/50MIN Diagnoses Heart palpitations R00.2 Hyperlipidemia, unspecified hyperlipidemia type E78.5 Hyperlipidemia type: unspecified CLL (chronic lymphocytic leukemia) C91.10 (2) Hyperlipidemia Hyperlipidemia type: unspecified Qualified Code(s): E78.5 - Hyperlipidemia, unspecified
--- NOTE | 2024-06-09 18:14 | XCELERA ---
[id number]
[2024-06-09] MEDS: METOPROLOL TARTRATE 50 MG TAB PO SCH (20:47)
[2024-06-09] MEDS: ATORVASTATIN 10 MG TAB PO SCH (21:20)
--- NOTE | 2024-06-09 21:49 | Electrocardiogram Report ---
Test Reason : Blood Pressure : */* mmHG Vent. Rate : 93 BPM Atrial Rate : 625 BPM P-R Int : * ms QRS Dur : 130 ms QT Int : 370 ms P-R-T Axes : 54 -4 58 degrees QTcB Int : 460 ms Sinus rhythm Right bundle branch block Septal infarct (cited on or before 16-May-2024) Abnormal ECG When compared with ECG of 16-May-2024 10:17, Questionable change in initial forces of Septal leads Confirmed by Felice Hassan ([id number]) on 06/09/2024 9:49:19 PM Referred By: REFERRED SELF Confirmed By: Feliec Hassan
[2024-06-10 06:53] LABS: Hematocrit (blood only) 38.4 % (37.0-47.0); Hemoglobin 12.6 g/dl (12.0-16.0); Mean Corpuscular Hemoglobin 29.9 pg (25.0-34.0); Mean Corpuscular Hgb Conc 32.8 g/dL (32.0-36.0); Mean Corpuscular Volume 91.2 fL (80.0-100.0); Mean Platelet Volume 10.2 fL (9.4-12.4); Platelet Count 174 K/uL (130-400); RDW Coefficient of Variation 13.7 % (11.5-14.5); Red Blood Count 4.21 M/uL (4.20-5.40); White Blood Count 38.89 K/ul (4.8-10.8)
[2024-06-10 07:23] LABS: Calcium 9.1 mg/dl (8.6-10.3); Creatinine Clr Calc Pharmacy 48.9 ml/min; Potassium 4.5 mmol/L (3.5-5.1)
[2024-06-10 08:12] VITALS: O2SAT 95
[2024-06-10 11:07] VITALS: BP 90/55; PULSE 69; TEMP 98.1
--- NOTE | 2024-06-10 12:37 | Discharge Summary ---
Discharge Summary Date of Service June 10, 2024 Principal Dx & Hospital Course #1 = Principal Diagnosis (1) Heart palpitations: Suspected PSVT on admission. Now resolved. Metoprolol dosage has been uptitrated. Thyroid profile is normal. (2) Hyperlipidemia: Stable. Continue statin therapy (3) CLL (chronic lymphocytic leukemia): Chronic leukocytosis as a result. Serial labs Plan Home today, June 10 Admission HPI Per Admitting Provider Catarina Quintana is an 83yo female with history of CLL on surveillance, HLP, ANABELLE on CPAP and recently diagnosed SVT presenting with palpitations. Patient went to the bathroom tonight around 02:00. When she returned to bed she felt palpita tions. She occasionally gets palpitations but reports that they were stronger tonight and felt different than before. She denies chest pain, SOB, dizziness, syncope. No additional complaints at this time. In the ER she is afebrile, HD stable Discharge Exam General-alert and oriented x3, no fever, no chills HEENT-head atraumatic and normocephalic, pupils equal and reactive to light, extraocular muscles intact Neck-no lymphadenopathy or thyromegaly, trachea midline Chest-clear to auscultation. No rales, wheezing or rhonchi Cardiac-regular rate and rhythm, normal S1 and S2 Abdomen-normal bowel sounds, no hepatosplenomegaly Extremities-no cyanosis, clubbing, or edema Neuro-cranial nerves II through XII intact, motor and sensory function within normal limits, strength symmetrical, no focal deficits Psych-normal affect, normal mood Discharge Plan Discharge Items Patient Disposition: Home - Self-Care Reason For Visit: PALPITATIONS, SVT Discharge Diagnosis: Palpitations, PSVT Activity: Resume your previous activity Non-emergency contact: Primary Care Provider Call non-emergency contact if: your symptoms worsen Follow-up/Referrals: ProHenok MD [Primary Care Provider] - Diet: Regular and Heart Healthy Addtl Attending Provider Instructions: Metoprolol has been increased to 50 mg twice daily. A prescription has been sent to the [facility] at [facility] Pending Studies at Discharge: No Stand-Alone Forms: My Vertro, Smoking Cessation Medications and DC Order Prescriptions: New metoprolol tartrate 50 mg Tablet 50 mg PO BID Qty: 60 0RF Continued atorvastatin 10 mg tablet 10 mg PO HS Qty: 90 3RF memantine 10 mg tablet 10 mg PO DAILY Qty: 90 1RF multivitamin tablet 1 tab PO QAM Rx Instructions: Unable to verify OTC meds at this date/time. cholecalciferol (vitamin D3) 1,000 unit capsule 2,000 units PO QAM Rx Instructions: Unable to verify OTC meds at this date/time. (DME) CPAP Machine Misc See Rx Instructions .MEDSUPPLY Qty: 1 0RF Rx Instructions: CPAP 9 cm of water, current machine nonfunctional. Mask, tubing, filters, and supplies for lifetime need. T&B MEDICAL Discontinued metoprolol tartrate 25 mg tablet 25 mg PO BID Qty: 60 0RF Discharge Orders: Discharge Order (Routine); Ordered 06/10/24 Ordered By: Barney Milan Admission Data Admit Date/Time: 06/09/24 05:56 Attending Provider: Barney Milan Admit Provider: Ignacia Yeung Primary Care Provider: Henok Garcias Other Providers: Ignacia Yeung Hospital Stay Data Consultations 06/09/24 05:13 ED Decision to Admit Stat Pending Results Patient Have Any Pending Studies at Discharge: No Discharge Instructions Given to Patient (Per Discharging Provider) Metoprolol has been increased to 50 mg twice daily. A prescription has been sent to the [facility] pharmacy at [facility] Total Time Total Time Spent Total Time Spent (In Minutes): 45 minutes Coding Level of Care Code 04494 INP/OBS DISCH >30 MIN Diagnoses Heart palpitations R00.2 Hyperlipidemia, unspecified hyperlipidemia type E78.5 Hyperlipidemia type: unspecified CLL (chronic lymphocytic leukemia) C91.10
== END 2024-06-10 14:40 | disposition home or self-care (01) ==
LOC: SUATTDRO → ED 03:26 → EDINP 03:26 → SUATTDRO 05:56 → EDINP 07:26 → 2N 17:07